=== PATIENT | female | born 1950 | race Two or more races ===

== ENCOUNTER → 2017-10-09 13:18 | Outpatient (CLI) | payer OTHER | END | disposition home or self-care (01) | LOC: LAB 13:18 → ADM 15:00 → EDSTATUS 10-13 15:00 → AMB-ENDOS 10-13 15:00 | DX: R10.84 Generalized abdominal pain (principal); R19.4 Change in bowel habit; K66.0 Peritoneal adhesions (postprocedural) (postinfection); K56.51 Intestinal adhesions [bands], with partial obstruction ==

== ENCOUNTER 2018-04-06 04:00 | Day surgery (SDC) | payer OTHER | END 2018-04-06 10:03 | disposition home or self-care (01) | LOC: CIR.AMB 04:00 | DX: K57.30 Diverticulosis of large intestine without perforation or abscess without bleeding (principal); R19.4 Change in bowel habit ==